=== PATIENT | male | born 1980 ===

== ENCOUNTER → 2021-11-27 08:42 | Outpatient (CLI) | payer OTHER, SELFPAY ==
[2021-11-27 22:37] LABS: COVID19 - ORCAS (NP or Nasal) POSITIVE (Negative)
== END ==
PROVIDERS: Visit Provider Physician Assistant Medical
DX: U07.1 COVID-19 (principal); Z20.822 Contact with and (suspected) exposure to COVID-19
CPT/HCPCS: U0003